=== PATIENT | female | born 1945 | race Caucasian/White ===

== ENCOUNTER 2022-02-09 14:18 | Inpatient (IN) ==
[2022-02-12] MEDS ORDERED: Magnesium Hydroxide LIQ 30 ML UDC PO PRN (13:00)
[2022-02-12] MEDS ORDERED: Senna TAB 8.6 mg TAB PO PRN (13:00)
[2022-02-12] MEDS: Carbidopa/Levodop 25/100 MG TAB PO SCH ×2 (16:33→20:50)
[2022-02-12] MEDS: dilTIAZem 30 MG TAB PO SCH (20:50)
[2022-02-12] MEDS: Heparin 5000 UNITS/ML 1 mL VIAL SUBCUT SCH (20:50)
[2022-02-13] MEDS: Carbidopa/Levodop 25/100 MG TAB PO SCH ×4 (08:40→20:58)
[2022-02-13] MEDS: Heparin 5000 UNITS/ML 1 mL VIAL SUBCUT SCH ×2 (08:41→20:59)
[2022-02-13] MEDS: dilTIAZem 30 MG TAB PO SCH (20:57)
[2022-02-14 06:09] LABS: ABS Eosinophils 0.1 10^3/ul (0-0.6); ABS Lymphocytes 1.7 10^3/ul (1.0-4.8); ABS Monocytes 0.6 10^3/ul (0-0.8); ABS Neutrophils 4.2 10^3/ul (1.5-7.7); Eosinophil % 1.4 %; Hematocrit 28 % (35-47); Hemoglobin 9.6 g/dL (12.0-16.0); Lymphocyte % 25.8 %; Mean Corpuscular HGB Conc 34 g/dL (31-36); Mean Corpuscular Hemoglobin 32 pg (27-31); Mean Corpuscular Volume 96 fL (80-97); Mean Platelet Volume 7.2 fL (7.4-10.4); Platelet Count 507 10^3/uL (150-450); Red Blood Count 2.97 10^6 /uL (3.70-4.87); Red Cell Distribution Width 14 % (10-15); White Blood Count 6.7 10^3/uL (3.5-10.8)
[2022-02-14 06:47] LABS: Albumin 3.7 g/dL (3.2-5.2); Albumin/Globulin Ratio 1.7 (1-3); Calcium 9.5 mg/dL (8.6-10.3); Globulin 2.2 g/dL (2-4); Potassium 4.5 mmol/L (3.5-5.0); Total Bilirubin 0.5 mg/dL (0.2-1.0); Total Protein 5.9 g/dL (6.4-8.9); eGFR CKD-EPI 91.1 (>60)
[2022-02-14] MEDS: Carbidopa/Levodop 25/100 MG TAB PO SCH ×4 (08:12→20:06)
[2022-02-14] MEDS: Heparin 5000 UNITS/ML 1 mL VIAL SUBCUT SCH ×2 (08:16→20:07)
[2022-02-14] MEDS: dilTIAZem 30 MG TAB PO SCH (20:07)
[2022-02-15] MEDS: Carbidopa/Levodop 25/100 MG TAB PO SCH ×4 (09:17→20:14)
[2022-02-15] MEDS: Heparin 5000 UNITS/ML 1 mL VIAL SUBCUT SCH ×2 (09:17→20:17)
[2022-02-15 19:37] LABS: Urine Appearance Clear; Urine Bilirubin Negative (Negative); Urine Blood Negative (Negative); Urine Color Yellow; Urine Glucose Negative (Negative); Urine Ketones Trace (Negative); Urine Nitrite Negative (Negative); Urine Protein Negative (Negative); Urine Specific Gravity 1.013 (1.002-1.030); Urine Urobilinogen Negative (Negative)
[2022-02-15] MEDS: dilTIAZem 30 MG TAB PO SCH (20:14)
[2022-02-16] MEDS: Carbidopa/Levodop 25/100 MG TAB PO SCH ×4 (08:50→20:46)
[2022-02-16] MEDS: Heparin 5000 UNITS/ML 1 mL VIAL SUBCUT SCH ×2 (08:51→20:47)
[2022-02-16] MEDS: dilTIAZem 30 MG TAB PO SCH (20:49)
[2022-02-17] MEDS: Heparin 5000 UNITS/ML 1 mL VIAL SUBCUT SCH ×2 (08:09→20:35)
[2022-02-17] MEDS: Carbidopa/Levodop 25/100 MG TAB PO SCH ×4 (08:09→20:35)
[2022-02-17] MEDS: dilTIAZem 30 MG TAB PO SCH (20:34)
[2022-02-18] MEDS: Heparin 5000 UNITS/ML 1 mL VIAL SUBCUT SCH ×2 (07:26→20:19)
[2022-02-18] MEDS: Carbidopa/Levodop 25/100 MG TAB PO SCH ×4 (07:27→20:17)
[2022-02-18] MEDS: dilTIAZem 30 MG TAB PO SCH (20:17)
[2022-02-19] MEDS: Carbidopa/Levodop 25/100 MG TAB PO SCH ×4 (08:10→19:58)
[2022-02-19] MEDS: Heparin 5000 UNITS/ML 1 mL VIAL SUBCUT SCH ×2 (08:12→19:57)
[2022-02-19] MEDS: dilTIAZem 30 MG TAB PO SCH (19:58)
[2022-02-20] MEDS: Carbidopa/Levodop 25/100 MG TAB PO SCH ×4 (09:52→21:10)
[2022-02-20] MEDS: Heparin 5000 UNITS/ML 1 mL VIAL SUBCUT SCH ×2 (09:52→21:11)
[2022-02-20] MEDS: dilTIAZem 30 MG TAB PO SCH (21:09)
[2022-02-21 05:59] LABS: ABS Eosinophils 0.2 10^3/ul (0-0.6); ABS Lymphocytes 1.2 10^3/ul (1.0-4.8); ABS Monocytes 0.5 10^3/ul (0-0.8); ABS Neutrophils 4.4 10^3/ul (1.5-7.7); Eosinophil % 3.6 %; Hematocrit 31 % (35-47); Hemoglobin 10.4 g/dL (12.0-16.0); Lymphocyte % 18.5 %; Mean Corpuscular HGB Conc 34 g/dL (31-36); Mean Corpuscular Hemoglobin 33 pg (27-31); Mean Corpuscular Volume 97 fL (80-97); Mean Platelet Volume 7.2 fL (7.4-10.4); Platelet Count 554 10^3/uL (150-450); Red Blood Count 3.16 10^6 /uL (3.70-4.87); Red Cell Distribution Width 15 % (10-15); White Blood Count 6.4 10^3/uL (3.5-10.8)
[2022-02-21 06:41] LABS: Calcium 9.8 mg/dL (8.6-10.3); Potassium 4.7 mmol/L (3.5-5.0); Total Bilirubin 0.3 mg/dL (0.2-1.0)
[2022-02-21 06:47] LABS: Albumin/Globulin Ratio 1.8 (1-3); Globulin 2.2 g/dL (2-4); Total Protein 6.2 g/dL (6.4-8.9); eGFR CKD-EPI 91.1 (>60)
[2022-02-21] MEDS: Heparin 5000 UNITS/ML 1 mL VIAL SUBCUT SCH ×2 (09:15→20:39)
[2022-02-21] MEDS: Carbidopa/Levodop 25/100 MG TAB PO SCH ×4 (09:16→20:28)
[2022-02-21] MEDS: dilTIAZem 30 MG TAB PO SCH (20:28)
[2022-02-22] MEDS: Carbidopa/Levodop 25/100 MG TAB PO SCH ×4 (08:05→20:14)
[2022-02-22] MEDS: Heparin 5000 UNITS/ML 1 mL VIAL SUBCUT SCH ×2 (08:54→20:20)
[2022-02-22] MEDS: dilTIAZem 30 MG TAB PO SCH (20:15)
[2022-02-23] MEDS: Carbidopa/Levodop 25/100 MG TAB PO SCH ×4 (08:38→20:24)
[2022-02-23] MEDS: Heparin 5000 UNITS/ML 1 mL VIAL SUBCUT SCH ×2 (08:39→20:26)
[2022-02-23] MEDS: dilTIAZem 30 MG TAB PO SCH (20:24)
[2022-02-24] MEDS: Carbidopa/Levodop 25/100 MG TAB PO SCH ×4 (08:09→19:49)
[2022-02-24] MEDS: Heparin 5000 UNITS/ML 1 mL VIAL SUBCUT SCH ×2 (08:09→19:48)
[2022-02-24] MEDS: dilTIAZem 30 MG TAB PO SCH (19:48)
[2022-02-25] MEDS: Carbidopa/Levodop 25/100 MG TAB PO SCH ×4 (08:22→19:59)
[2022-02-25] MEDS: Heparin 5000 UNITS/ML 1 mL VIAL SUBCUT SCH ×2 (08:24→19:59)
[2022-02-25] MEDS: dilTIAZem 30 MG TAB PO SCH (19:59)
[2022-02-26] MEDS: Carbidopa/Levodop 25/100 MG TAB PO SCH ×4 (08:00→20:20)
[2022-02-26] MEDS: Heparin 5000 UNITS/ML 1 mL VIAL SUBCUT SCH ×2 (08:07→20:24)
[2022-02-27 05:12] VITALS: BP 127/73
[2022-02-27] MEDS: Carbidopa/Levodop 25/100 MG TAB PO SCH (09:01)
[2022-02-27] MEDS: Heparin 5000 UNITS/ML 1 mL VIAL SUBCUT SCH (09:02)
== END 2022-02-27 11:39 | disposition home or self-care (01) | DRG 946 ==
LOC: PMRU 02-12 11:34
PROVIDERS: ADMIT Physical Medicine & Rehabilitation; ATTEND Physical Medicine & Rehabilitation